=== PATIENT | male | born 1970 | race Caucasian/White ===

== ENCOUNTER 2017-10-24 12:42 | Emergency (ER) | payer OTHER ==
[2017-10-24] MEDS ORDERED: KETOROLAC TROMETHAMINE INJ/PF 30 MG/1 ML SDV IM ONE (14:05)
[2017-10-24] MEDS ORDERED: DEXAMETHASONE SOD PHOS INJ 10 MG/1 ML VIAL IM ONE (14:05)
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
[2017-10-24 14:19] VITALS: BP 141/81
== END 2017-10-24 14:18 | disposition home or self-care (01) ==
LOC: ER 12:42
DX: S46.811A Strain of other muscles, fascia and tendons at shoulder and upper arm level, right arm, initial encounter (principal); M54.2 Cervicalgia; M25.511 Pain in right shoulder; V87.7XXA Person injured in collision between other specified motor vehicles (traffic), initial encounter; Z87.891 Personal history of nicotine dependence
CPT/HCPCS: 99283; 96372; J1885; J1100

== ENCOUNTER → 2019-04-04 | Outpatient (CLI) | payer OTHER ==
[2019-04-04 10:45] LABS: ABSOLUTE BASOPHILS # (AUTO) 0.1 10^3/uL (0.0-0.2); ABSOLUTE EOSINOPHILS # (AUTO) 0.2 10^3/uL (0.0-0.6); ABSOLUTE LYMPHOCYTES (AUTO) 1.6 10^3/uL (0.5-4.7); ABSOLUTE MONOCYTES (AUTO) 0.7 10^3/uL (0.1-1.4); ABSOLUTE NEUT (AUTO) 6.1 10^3/uL (1.7-8.2); EOSINOPHILS % (AUTO) 1.8 % (0-6); HEMATOCRIT 46.2 % (37.9-51.0); HEMOGLOBIN 15.8 g/dL (13.5-17.0); LYMPHOCYTES % (AUTO) 18.7 % (13-45); MEAN CORPUSCULAR HEMOGLOBIN 31.4 pg (27.0-33.4); MEAN CORPUSCULAR HGB CONC 34.3 g/dL (32.0-36.0); MEAN CORPUSCULAR VOLUME 92 fl (80-97); MONOCYTES % (AUTO) 7.8 % (3-13); PLATELET COUNT 220 10^3/uL (150-450); RED BLOOD COUNT 5.05 10^6/uL (4.35-5.55); RED CELL DISTRIBUTION WIDTH 12.7 % (11.5-14.0); SEGMENTED NEUTROPHILS % (AUTO) 70.7 % (42-78); TOTAL CELLS COUNTED % (AUTO) 100 %; WHITE BLOOD COUNT 8.6 10^3/uL (4.0-10.5)
[2019-04-04 11:08] LABS: ALBUMIN 4.6 g/dL (3.5-5.0); ALKALINE PHOSPHATASE 62 U/L (38-126); ANION GAP 10 (5-19); ASPARTATE AMINO TRANSFERASE 36 U/L (17-59); BILIRUBIN,DIRECT 0.2 mg/dL (0.0-0.4); BILIRUBIN,TOTAL 0.9 mg/dL (0.2-1.3); BLOOD UREA NITROGEN 14 mg/dL (7-20); CALCIUM 9.4 mg/dL (8.4-10.2); CARBON DIOXIDE 27 mmol/L (22-30); CHLORIDE 101 mmol/L (98-107); GLUCOSE 105 mg/dL (75-110); POTASSIUM 4.9 mmol/L (3.6-5.0); TOTAL PROTEIN 7.3 g/dL (6.3-8.2)
== END ==
LOC: LAB 10:00
PROVIDERS: ATTEND Physician Assistant
DX: Z11.2 Encounter for screening for other bacterial diseases (principal); I10 Essential (primary) hypertension
CPT/HCPCS: 36415; 80053; 85025; 87070